=== PATIENT | male | born 2000 | race Caucasian/White ===

== ENCOUNTER 2021-05-20 10:58 | Emergency (ER) | payer OTHER, SELFPAY ==
[~2021-05-20] VITALS: Ht 188 cm; Wt 82.9 kg
[2021-05-20] MEDS ORDERED: LIDOCAINE W/EPINEPHRINE 1% 20ML VIAL SC ONE (12:55)
[2021-05-20] MEDS ORDERED: BACT800T5 PO (13:13)
[2021-05-20 13:40] VITALS: BP 124/57
== END 2021-05-20 13:52 | disposition home or self-care (01) ==
LOC: M ED 10:58
DX: L02.414 Cutaneous abscess of left upper limb (principal); F17.200 Nicotine dependence, unspecified, uncomplicated